=== PATIENT | female | born 1975 | race Caucasian/White ===

== ENCOUNTER → 2018-07-27 | Day surgery (SDC) | payer OTHER ==
[~2018-07-27] MED LIST: ADDERALL 20 MG20 M1 PO; BIRTH CONTROL PILL PO; NORCO 5-325 TA1 EACH PO
--- NOTE | ~2018-07-27 | OP ---
[facility] [address] [place] [address] OPERATIVE REPORT Name: CHAYA BAHENA Room: [facility].#: [id number] Admission: 07/27/18 Attend Phys: Keith Syed Discharge: Date of : 77 Report #: [id number] THIS REPORT FOR: //name// CC: Keith Syed Libia Heredia DATE OF SERVICE: 07/27/2018 PREOPERATIVE DIAGNOSIS: Symptomatic cholelithiasis. POSTOPERATIVE DIAGNOSIS: Acute cholecystitis. OPERATION: Laparoscopic cholecystectomy with cholangiogram. SURGEON: Keith Syed M.D. ANESTHESIA: General. ESTIMATED BLOOD LOSS: Minimal. SPECIMEN: Gallbladder. DESCRIPTION OF PROCEDURE: After informed consent was obtained, the patient was brought to the operating room and placed supine. SCDs were placed and working, preoperative antibiotics were administered and general anesthesia was induced. The abdomen was prepped and draped in the usual sterile fashion. A 10-mm incision was made below the umbilicus. Fascia was incised. Trocar was placed. Pneumoperitoneum was established. Three right upper quadrant 5-mm ports were placed. Gallbladder was grasped and retracted cephalad. I was able to isolate the cystic duct. The cystic artery was clipped and ligated with a clip country director. Once I incised the cystic duct, I noticed there was a significant amount of sludge and stones within the cystic duct. I wanted to be sure that these have not gone out into the common bile duct. Therefore, a cholangiogram catheter was inserted. Cholangiogram was performed. This demonstrated filling of the cystic duct stump, common hepatic duct, common bile duct, bifurcation of the hepatics, smooth flow into the duodenum without filling defects. This was normal. Catheter was then removed. The cystic duct was ligated with a PDS Endoloop. The gallbladder was then taken off the liver bed with electrocautery. It was placed into an Endopouch and removed. The fascia was closed with a [id number] 0 Vicryl. Skin was closed with 4-0 Monocryl. Incisions were sealed with Dermabond. COMPLICATIONS: [place] [address] OPERATIVE REPORT Name: CHAYA BAHENA Room: [facility]#: [id number] Admission: 07/27/18 Attend Phys: Keith Syed Discharge: Date of : 77 Report #: [id number] DISPOSITION: The patient was taken to recovery in satisfactory condition. By: [id number] Syed MD /nt
[2018-07-27 06:45] LABS: HEMATOCRIT 38.5 % (37.0-47.0); HEMOGLOBIN 12.9 gm/dL (12.0-15.0)
[2018-07-27 06:53] LABS: CALCIUM 8.4 mg/dL (8.5-10.1); CREATININE 0.8 mg/dL (0.6-1.3); POTASSIUM 4.1 mmol/L (3.5-5.1)
[2018-07-27 06:58] LABS: ALBUMIN 3.2 g/dL (3.4-5.0); TOTAL BILIRUBIN 0.3 mg/dL (<0.1-1.0); TOTAL PROTEIN 7.1 g/dL (6.4-8.2)
== END | disposition home or self-care (01) ==
LOC: M.SUR 06:00
PROVIDERS: Surgery
DX: K81.0 Acute cholecystitis (principal); Z79.891 Long term (current) use of opiate analgesic; Z79.899 Other long term (current) drug therapy